=== PATIENT | female | born 1950 | race Caucasian/White ===

== ENCOUNTER 2018-06-03 14:46 | Emergency (ER) | payer MEDICARE ==
[2018-06-03 14:53] VITALS: BP 127/68
[2018-06-03] MEDS ORDERED: PROPARACAINE 0.5% OPHTH DROPS 15 ML RIGHTEYE STA (15:55)
--- NOTE | 2018-06-03 16:09 | ED Physician Documentation ---
PD HPI OPHTHO - Stated complaint Stated Complaint: RT EYE PX - Chief complaint Chief Complaint: Heent - History obtained from History obtained from: Patient - History of Present Illness Timing - onset: Yesterday Timing - duration: Days (3) Timing - details: Gradual onset, Still present Location: Right Quality / character: Itching, Burning, Throbbing Associated symptoms: Redness, Swelling, Tearing, Discharge, Matting, FB sensation Contributing factors: FB Similar symptoms before: Has not had sx before Recently seen: Not recently seen - Additional information Additional information: 67-year-old female is visiting her daughter from out of [place] and she does not have an allergy to cats that she knows of but her daughter has both a cat and rabbit and the patient has been feeding the rabbit and she feels like she might of gotten something into her eye 3 days ago and she has had itching and persistent burning since then. The left eye was initially involved and that has completely resolved right eye has progressed is now red there is foreign body sensation and matting. Review of Systems Constitutional: denies: Fever, Chills Eyes: reports: Discharge, Irritation. denies: Loss of vision, Decreased vision, Photophobia Ears: denies: Ear pain Nose: denies: Rhinorrhea / runny nose, Congestion Throat: denies: Sore throat Respiratory: denies: Cough PD PAST MEDICAL HISTORY - Present Medications Home Medications: Ambulatory Orders Medication Instructions Recorded Confirmed Losartan/Hydrochlorothiazide 1 tab PO DAILY 06/03/18 06/03/18 [Losartan-Hctz 50-12.5 mg Tab] Neomycin/Poly/Dex Ophth Drops 1 drops RIGHTEYE QID #1 bottle 06/03/18 [Maxitrol Ophth Drops] RX: Gemfibrozil 600 mg PO BID 06/03/18 06/03/18 - Allergies Allergies/Adverse Reactions: Allergies Allergy/AdvReac Type Severity Reaction Status Date / Time No Known Drug Allergies Allergy Verified 06/03/18 14:53 - Social History Does the pt smoke?: No Smoking Status: Never smoker PD ED PE NORMAL - Vitals Vital signs reviewed: Yes (normal ) - General General: Alert and oriented X 3, No acute distress, Well developed/nourished - HEENT HEENT: Atraumatic, PERRL, EOMI - Respiratory Respiratory: No respiratory distress - Neuro Neuro: Alert and oriented X 3, 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 No: Conj/sclera FB, Subconj hemorrhage, Corneal FB, Corneal abrasion, Fluorescein uptake Results - Vitals Vitals: Vital Signs - 24 hr 06/03/18 14:49 Temperature 36.4 C L Heart Rate 78 Respiratory 16 Rate Blood Pressure 127/68 O2 Saturation 98 PD MEDICAL DECISION MAKING - ED course Complexity details: considered differential, d/w patient ED course: 67y/o female with right eye exudate and swelling after debris were present has no fluoroscein uptake and she is irrigated and we will place her on some maxitrol. Departure - Departure Disposition: 01 Home, Self Care Clinical Impression: Conjunctivitis Condition: Stable Instructions: ED Conjunctivitis Nonspecific Follow-Up: Your, doctor [Other] Prescriptions: Neomycin/Poly/Dex Ophth Drops [Maxitrol Ophth Drops] 1 drops RIGHTEYE QID #1 bottle Discharge Date/Time: 06/03/18 16:58
== END 2018-06-03 16:58 | disposition home or self-care (01) ==
LOC: ED 14:46
DX: H10.9 Unspecified conjunctivitis (principal)
CPT/HCPCS: 99283; J3490